=== PATIENT | female | born 1950 | race Two or more races ===

== ENCOUNTER 2019-09-14 13:37 | Emergency (ER) | payer OTHER ==
[~2019-09-14] VITALS: Ht 157.5 cm; Wt 68.0 kg
[~2019-09-14 13:37] MED LIST: ASPI-630 PO; CIPR500T94 PO; LISI-334 PO; PREN1TAB58 PO
[2019-09-14 14:15] VITALS: BP 134/75
[2019-09-14 14:24] LABS: BILIRUBIN,URINE NEGATIVE (NEG); CLARITY,URINE CLEAR; COLOR,URINE YELLOW; NITRITE,URINE NEGATIVE (NEG); PROTEIN,URINE NEGATIVE (NEG-TRACE); UROBILINOGEN,URINE 0.2 mg/dL (0.2 mg/dL)
[2019-09-14 14:38] LABS: BACTERIA,URINE MODERATE /HPF (0-FEW); RBC,URINE OCC /HPF (0-2); SQUAMOUS EPITHELIAL CELL,UR MANY /LPF
[2019-09-14] MEDS ORDERED: PHEN-318 PO (15:18)
[2019-09-14] MEDS ORDERED: CEPH500C PO (15:18)
--- NOTE | 2019-09-14 15:18 | PHYS DOC ---
Past Medical History Past Medical History: High Cholesterol, Hypertension Past Surgical History: No Surgical History, Cholecystectomy, Hysterectomy, Other Additional Past Surgical Histo: hernia Smoking Status: Never Smoker Alcohol Use: None Drug Use: None Adult General Chief Complaint Chief Complaint: PAIN ON URINATION [facility] Patient is a 69 year old female who presents to the emergency department with complaints of burning with urination for the last 3 days. She denies any fever, cough, shortness of breath, nausea, vomiting, diarrhea, abdominal pain, chest pain, palpitations, or wheezing. Patient denies any back pain or blood in her urine. She currently denies any pain at rest. She states that she only has pain with urination. Review of Systems Review of Systems Complete ROS is negative unless otherwise noted in HPI. Allergies Allergies Allergies Coded Allergies Type Severity Reaction Last Updated Verified No Known Drug Allergies 06/08/17 No Physical Exam Physical Exam See Above Constitutional: Well developed, well nourished, no acute distress, non-toxic appearance. [] HENT: Normocephalic, atraumatic, bilateral external ears normal, nose normal. [] Eyes: PERRLA, EOMI, conjunctiva normal, no discharge. [] Neck: Normal range of motion, no stridor. [] Cardiovascular:Heart rate regular rhythm, Lungs & Thorax: Bilateral breath sounds clear to auscultation, Respirations even and unlabored, no retractions, no respiratory distress [] Skin: Warm, dry, no erythema, no rash. [] Back: No CVA tenderness. [] Extremities: No cyanosis, ROM intact, no edema. [] Neurologic: Alert and oriented X 3, no focal deficits noted. [] Psychologic: Affect normal, judgement normal, mood normal. [] Current Patient Data Vital Signs Vital Signs Date Time Temp Pulse Resp B/P (MAP) Pulse Ox O2 Delivery O2 Flow Rate FiO2 09/14/19 14:15 98.0 87 16 134/75 (94) 95 Room Air 98.0 Lab Values Laboratory Tests Test 09/14/19 14:15 Urine Collection Type Unknown Urine Color Yellow Urine Clarity Clear Urine pH 5.0 (<5.0-8.0) Urine Specific [place] 1.020 (1.000-1.030) Urine Protein Negative mg/dL (NEG-TRACE) Urine Glucose (UA) 100 mg/dL (NEG) Urine Ketones (Stick) Negative mg/dL (NEG) Urine Blood Negative (NEG) Urine Nitrite Negative (NEG) Urine Bilirubin Negative (NEG) Urine Urobilinogen Dipstick 0.2 mg/dL (0.2 mg/dL) Urine Leukocyte Esterase Small (NEG) Urine RBC Occ /HPF (0-2) Urine WBC 11-20 /HPF (0-4) Urine Squamous Epithelial Cells Many /LPF Urine Bacteria Moderate /HPF (0-FEW) Urine Mucus Marked /LPF EKG EKG [] Radiology/Procedures Radiology/Procedures [] Course & Med Decision Making Course & Med Decision Making Pertinent Labs and Imaging studies reviewed. (See chart for details) Patient is a 69-year-old female who presented to the emergency room with complaints of painful urination for 3 days. Her UA was concerning for a urinary tract infection. There was no CVA tenderness on exam. Prescriptions written for Keflex and Pyridium. Discouraged patient from use of bladder irritants. Follow-up with primary care doctor if symptoms persist, return to ER if symptoms worsen. Patient verbalized an understanding of home care, medications, follow-up, and return to ED instructions and was in agreement with the plan of care. [] Dragon Disclaimer Dragon Disclaimer This electronic medical record was generated, in whole or in part, using a voice recognition dictation system. Departure Departure Impression: Primary Impression: UTI (urinary tract infection) Disposition: 01 HOME, SELF-CARE Condition: STABLE Referrals: LISA PEREZ (PCP) Patient Instructions: Urinary Tract Infection, [id number] Additional Instructions: Fill prescription(s) and use as directed. Avoid bladder irritants such as caffeine, carbonation, and spicy foods. Increase clear fluids. Follow up with your primary care doctor if symptoms persist, return to the ER if symptoms worsen. Scripts Phenazopyridine Hcl (PYRIDIUM) 200 Mg Tablet 1 TAB PO TID for urinary discomfort for 3 Days, #9 TAB 0 Refills Prov: JOSEY MATHIS APRN 09/14/19 Cephalexin (CEPHALEXIN) 500 Mg Capsule 1 CAP PO BID for 7 Days, #14 CAP 0 Refills Prov: JOSEY MATHIS RESEARCH PROJECT COORDINATOR 09/14/19 Problem Qualifiers Primary Impression: UTI (urinary tract infection) Urinary tract infection type: site unspecified Hematuria presence: without hematuria Qualified Codes: N39.0 - Urinary tract infection, site not specified JOSEY MATHIS APRN Sep 14, 2019 15:18
== END 2019-09-14 15:21 | disposition home or self-care (01) ==
LOC: ER 13:37
DX: N39.0 Urinary tract infection, site not specified (principal); E78.00 Pure hypercholesterolemia, unspecified; I10 Essential (primary) hypertension; F17.200 Nicotine dependence, unspecified, uncomplicated; Z90.49 Acquired absence of other specified parts of digestive tract; Z90.710 Acquired absence of both cervix and uterus; Z98.890 Other specified postprocedural states
CPT/HCPCS: 81001; 87086; 99283

== ENCOUNTER 2021-01-11 12:40 | Emergency (ER) | payer OTHER ==
[~2021-01-11] VITALS: Ht 147.3 cm; Wt 82.0 kg
[~2021-01-11 12:40] MED LIST changes: +CEPH500C PO; -LISI-334 PO; +LISI20TA18 PO; +PHEN-318 PO
[2021-01-11 13:40] LABS: BILIRUBIN,URINE NEGATIVE (NEG); CLARITY,URINE CLEAR; NITRITE,URINE NEGATIVE (NEG); PH,URINE 5.5 (<5.0-8.0); PROTEIN,URINE NEGATIVE (NEG-TRACE); UROBILINOGEN,URINE 0.2 mg/dL (0.2 mg/dL)
[2021-01-11] MEDS ORDERED: cefTRIAXone IV Push 1 GM VIAL. IVP ONE (13:45)
[2021-01-11] MEDS ORDERED: IV NORMAL SALINE 1000ML BAG 1,000 ML IV ONE (13:45)
[2021-01-11 13:47] LABS: COLOR,URINE STRAW
[2021-01-11 13:49] LABS: RBC,URINE 0 /HPF (0-2)
[2021-01-11 13:50] LABS: BACTERIA,URINE FEW /HPF (0-FEW)
[2021-01-11 14:12] VITALS: BP 123/70
[2021-01-11] MEDS ORDERED: PHEN-318 PO (14:21)
[2021-01-11] MEDS ORDERED: CEPH500C PO (14:21)
--- NOTE | 2021-01-11 14:21 | PHYS DOC ---
Past Medical History Past Medical History: High Cholesterol, Hypertension Past Surgical History: No Surgical History, Appendectomy, Cholecystectomy, Hysterectomy, Tubal ligation, Other Additional Past Surgical Histo: hernia Smoking Status: Never Smoker Alcohol Use: None Drug Use: None General Adult EDM: Chief Complaint: URINARY FREQUENCY HPI: HPI: Patient is a 70 year old female who presented to ER with 4-days history urinary frequency, burning with urination. Patient denies any fever, no cough, no chills, no abdominal pain, no back pain. Patient says she was seen here last year for the same problem, diagnosed with UTI, patient was discharged home with antibiotics and she took the medication and she felt better. Patient denies any chest pain, no trouble breathing. Review of Systems: Review of Systems: Constitutional: Denies fever or chills. [] Eyes: Denies change in visual acuity. [] HENT: Denies nasal congestion or sore throat. [] Respiratory: Denies cough or shortness of breath. [] Cardiovascular: Denies chest pain or edema. [] GI: Denies abdominal pain, nausea, vomiting, bloody stools or diarrhea. [] : Positive for dysuria and frequency Musculoskeletal: Denies back pain or joint pain. [] Integument: Denies rash. [] Neurologic: Denies headache, focal weakness or sensory changes. [] Endocrine: Denies polyuria or polydipsia. [] Lymphatic: Denies swollen glands. [] Psychiatric: Denies depression or anxiety. [] Heart Score: C/O Chest Pain: N/A Risk Factors: Risk Factors: DM, Current or recent (<one month) smoker, HTN, HLP, family history of CAD, obesity. Risk Scores: Score 0 - 3: 2.5% MACE over next 6 weeks - Discharge Home Score 4 - 6: 20.3% MACE over next 6 weeks - Admit for Clinical Observation Score 7 - 10: 72.7% MACE over next 6 weeks - Early Invasive Strategies Current Medications: Current Medications Medications (Trade) Dose Ordered Sig/Christal Start Time Stop Time Status Last Admin Dose Admin Ceftriaxone Sodium (Rocephin) 1 gm 1X ONCE 01/11/21 13:45 01/11/21 13:46 DC Sodium Chloride 1,000 ml @ 1,000 mls/hr 1X ONCE 01/11/21 13:45 01/11/21 14:44 Allergies: Allergies: Allergies Coded Allergies Type Severity Reaction Last Updated Verified No Known Drug Allergies 06/08/17 No Physical Exam: PE: Constitutional: Well developed, well nourished, no acute distress, non-toxic appearance. [] HENT: Normocephalic, atraumatic, bilateral external ears normal, oropharynx moist, no oral exudates, nose normal. [] Eyes: PERRLA, EOMI, conjunctiva normal, no discharge. [] Neck: Normal range of motion, no tenderness, supple, no stridor. [] Cardiovascular:Heart rate regular rhythm, no murmur [] Lungs & Thorax: Bilateral breath sounds clear to auscultation [] Abdomen: Bowel sounds normal, soft, no tenderness, no masses, no pulsatile masses. [] Skin: Warm, dry, no erythema, no rash. [] Back: No tenderness, no CVA tenderness. [] Extremities: No tenderness, no cyanosis, no clubbing, ROM intact, no edema. [] Neurologic: Alert and oriented X 3, normal motor function, normal sensory function, no focal deficits noted. [] Psychologic: Affect normal, judgement normal, mood normal. [] Current Patient Data: Labs: Laboratory Tests Test 01/11/21 13:31 Urine Collection Type Unknown Urine Color Straw Urine Clarity Clear Urine pH 5.5 (<5.0-8.0) Urine Specific [place] <=1.005 (1.000-1.030) Urine Protein Negative mg/dL (NEG-TRACE) Urine Glucose (UA) Negative mg/dL (NEG) Urine Ketones (Stick) Negative mg/dL (NEG) Urine Blood Negative (NEG) Urine Nitrite Negative (NEG) Urine Bilirubin Negative (NEG) Urine Urobilinogen Dipstick 0.2 mg/dL (0.2 mg/dL) Urine Leukocyte Esterase Small (NEG) Urine RBC 0 /HPF (0-2) Urine WBC 1-4 /HPF (0-4) Urine Squamous Epithelial Cells Few /LPF Urine Bacteria Few /HPF (0-FEW) Vital Signs: Vital Signs Date Time Temp Pulse Resp B/P (MAP) Pulse Ox O2 Delivery O2 Flow Rate FiO2 01/11/21 14:12 98.1 71 16 123/70 (94) 95 Room Air 98.1 EKG: EKG: [] Radiology/Procedures: Radiology/Procedures: [] Course & Med Decision Making: Course & Med Decision Making Pertinent Labs and Imaging studies reviewed. (See chart for details) Patient is a 70-year-old female who present to ER due to urinary frequency and urgency with pain. Patient declined any further diagnostic work-up done. Patient would like to be sent home with some antibiotics for her to take outpatient. Dragon Disclaimer: Dragon Disclaimer: This electronic medical record was generated, in whole or in part, using a voice recognition dictation system. Departure Departure Impression: Primary Impression: UTI (urinary tract infection) Disposition: HOME / SELF CARE / HOMELESS Condition: STABLE Referrals: LISA PEREZ (PCP) FOLLOW UP WITH YOUR DOCTOR ON THURSDAY FOR REEVALUATION Patient Instructions: Urinary Tract Infection Additional Instructions: Thank you for visiting our Emergency Department. We appreciate you trusting us with your care. If any additional problems come up don't hesitate to return to visit us. Please follow up with your primary care provider so they can plan additional care if needed and know about the problem that you had. If symptoms worsen come back to the Emergency Department. Any concerning symptoms that start such as chest pain, shortness of air, weakness or numbness on one side of the body, running high fevers or any other concerning symptoms return to the ER. Scripts Phenazopyridine Hcl (PYRIDIUM) 200 Mg Tablet 1 TAB PO TID for urinary discomfort for 2 Days, #6 TAB 0 Refills Prov: AYDEN QUINONEZ DO 01/11/21 Cephalexin (CEPHALEXIN) 500 Mg Capsule 1 CAP PO QID for 7 Days, #28 CAP Prov: AYDEN QUINONEZ DO 01/11/21 AYDEN QUINONEZ DO Jan 11, 2021 14:21
== END 2021-01-11 14:56 | disposition home or self-care (01) ==
LOC: ER 12:40
DX: N39.0 Urinary tract infection, site not specified (principal); E78.00 Pure hypercholesterolemia, unspecified; I10 Essential (primary) hypertension; Z90.49 Acquired absence of other specified parts of digestive tract; Z90.89 Acquired absence of other organs; Z90.710 Acquired absence of both cervix and uterus; Z98.51 Tubal ligation status
CPT/HCPCS: 81001; 87086; 99283